=== PATIENT | female | born 1980 ===

== ENCOUNTER 2016-10-29 19:31 | Emergency (ER) | payer OTHER ==
[~2016-10-29] VITALS: Ht 147.3 cm; Wt 51.4 kg
--- OUTSIDE RECORDS SUMMARY | 2016-10-29 19:38 | XMS REPORT | Summary of Care ---
Author Author Tobias Galindo M.D. Organization Unknown Address Unknown Phone Unavailable Care Team Providers Care Plush Dresser Name Role Phone Tobias Galindo M.D. 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 Syncope (780.2, R55) Status: Active Migraine (346.90, G43.909) Status: Active Seasonal allergic rhinitis (477.9, J30.2) Status: Active Seizure disorder (345.90, G40.909) Status: Active Neck pain (723.1, M54.2) Status: Active Urticaria (708.9, L50.9) Status: Active Chest pain, atypical (786.59, R07.89) Status: Active Dizziness (780.4, R42) Status: Active Insect bites (919.4, W57.XXXA) Status: Active Joint pain (719.40, M25.50) Status: Active Fibromyalgia (729.1, M79.7) Status: Active Back pain, chronic (724.5, M54.9) Status: Active Type 1 diabetes (250.01, E10.9) Status: Active Hypercholesterolemia (272.0, E78.0) Status: Active Circadian rhythm sleep disorder, 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 Active 10 ML Vial Levothyroxine Sodium 88 MCG Oral Tablet Refills: 0 Active Excedrin Extra Strength CAPS Refills: 0 Active Carisoprodol 350 MG Oral Tablet TAKE 1 TABLET 3 times daily Quantity: 90 Refills: 5 JosieTobias vyas M.D. Start 08-May-2014 Active Estradiol 1 MG Oral Tablet TAKE 1 TABLET DAILY. Refills: 0 Start 08-May-2014 Active OxyCODONE HCl - 20 MG Oral Tablet 1 TAB EVERY 4 HOURS NEEDED FOR PAIN Quantity: 100 Refills: 0 Essex M.D., Tobias Start 27-Oct-2015 Active Methadone HCl - 10 MG Oral Tablet TAKE 4 TABS PO BID Quantity: 240 Refills: 0 Josie M.D., Tobias Start 27-Oct-2015 Active Hydrocodone-Acetaminophen 10-325 MG Oral Tablet TAKE 1 TO 2 TABLETS EVERY 4 TO 6 HOURS NEEDED FOR PAIN. Quantity: 240 Refills: 0 Essex M.D., Tobias Start 27-Oct-2015 Active Lisinopril 10 MG Oral Tablet TAKE 1 TABLET DAILY. Quantity: 30 Refills: 6 Essex M.D., Tobias Start 26-Nov-2015 Active Levemir 100 UNIT/ML Subcutaneous Solution Inject 32 units of Levemir at HS Refills: 0 Josie M.D., Tobias Start 26-Nov-2015 Active Lipitor 80 MG Oral Tablet TAKE 1 TABLET AT BEDTIME. Refills: 0 Essex M.D., Tobias Start 26-Nov-2015 Active Aspirin Adult Low Strength 81 MG Oral Tablet Chewable CHEW AND SWALLOW 1 TABLET DAILY. Refills: 0 Essex M.D., Tobias Start 26-Nov-2015 Active Meclizine HCl - 12.5 MG Oral Tablet TAKE 1 TABLET 3 TIMES DAILY NEEDED. Refills: 0 Essex M.D., Tobias Start 26-Nov-2015 Active Halobetasol Propionate 0.05 % External Cream APPLY AND GENTLY MASSAGE INTO AFFECTED AREA(S) TWICE DAILY. Quantity: 1 Refills: 2 Josie M.D., Tobias Start Active 15 GM Tube Modafinil 200 MG Oral Tablet TAKE 1 TABLET DAILY DIRECTED. Quantity: 30 Refills: 5 Essex M.D., Tobias Start 25-Feb-2016 Active Allergies and Adverse Reactions Name Dates Details Ativan (Allergy) Status: Active Cymbalta (Allergy) Status: Active Lyrica CAPS (Allergy) Status: Active Morphine Derivatives (Allergy) Status: Active Savella TABS (Allergy) Status: Active TraMADol HCl TABS (Allergy) Status: Active Zithromax (Allergy) Status: Active Past Medical History Name Dates Details Back pain, chronic (724.5, M54.9) Status: Active Chest pain, atypical (786.59, R07.89) Status: Active Fibromyalgia (729.1, M79.7) Status: Active Migraine (346.90, G43.909) Status: Active Neck pain (723.1, M54.2) Status: Active Seasonal allergic rhinitis (477.9, J30.2) Status: Active Seizure disorder (345.90, G40.909) Status: Active Type 1 diabetes (250.01, E10.9) Status: Active History of gastric ulcer (V12.79, Z87.19) Status: Resolved History of Numbness (782.0, R20.0) Status: Resolved History of tinnitus (V12.49, Z86.69) Status: Resolved Procedures Procedure Dates Details History of Hysterectomy History of Section History of Exploratory Laparoscopy History of Neuroplasty Decompression Median Nerve At Carpal Tunnel Drug Screen Pain Management 8400 Ordered: 20-Feb-2016 Immunization Name Dates Details Immunizations not documented Family History Name Dates Details Family history of fibromyalgia (V17.89, Z82.69) Status: Active Family history of migraine headaches (V17.2, Z82.0) Status: Active Family history of hypertension (V17.49, Z82.49) Status: Active Name Dates Details Family history of hypoglycemia (V18.19, Z83.49) Status: Active Social History Name Dates Details - Status: Name Dates Details Current every day smoker Vital Signs Date Test Result Details 25-Feb-2016 08:03 BP Systolic 108 mm[Hg] Status: Comments: Location: LUE; Position: Sitting BP Diastolic 70 mm[Hg] Status: Comments: Location: LUE; Position: Sitting Temperature 98 f Status: Comments: Method: Oral Heart Rate 68 /min Status: Comments: Location: L Radial; Weight 125 lb Status: Physical Findings 97 Status: Comments: O2 Saturation Body Mass Index Calculated 25.68 kg/m2 Status: Body Surface Area Calculated 1.5 m2 Status: Results Date Description Value Details 11:04 LIPID PROFILE 1184 Comments: Items were attached to this order: LIPID, GHGB Fastin hours CHOLESTEROL 214 mg/dL (Above high threshold) Range: <200 TRIGLYCERIDES 166 mg/dL Range: 30-200 HDL Cholesterol 58 mg/dL Range: >39 NON HDL CHOLESTEROL 156 CARDIAC RSK FACTOR 3.7 units (Below low threshold) Range: 4.4-5.0 LDL - CALCULATED 123 mg/dL Range: 0-130 11:51 HEMOGLOBIN A1C 3507 Comments: Items were attached to this order: LIPID , GB Fastin hours Hemoglobin A1C 11.2 % ESTIMATED AVG. GLUCOSE 275 13:09 ANTINUCLEAR ANTIBODIES 3902 Comments: Fastin hours ANTINUCLEAR ANTIBODIES 41 AU/mL Range: 0-120 Comments: REFERENCE VALUE INTERPRETATION 0-99 U/mL - NEGATIVE 100 - 120 U/mL - EQUIVOCAL >120 U/mL - POSITIVE--- -- Plan of Care Name Dates Details Planned Observations Planned Goals not documented Planned Encounters Appointment; Provider: Tobias Galindo M.D. On 26-Mar-2016 08:00 Interventions Provided Medication ChangesCarisoprodol 350 MG Oral Tablet - RenewHydrocodone- Acetaminophen 10-325 MG Oral Tablet - RenewMethadone HCl - 10 MG Oral Tablet - RenewModafinil 200 MG Oral Tablet - StartOxyCODONE HCl - 20 MG Oral Tablet - Renew Instructions Name Dates Details Instructions not documented Encounters Appointment; Tobias Galindo M.D. Encounter Diagnosis: Problem not documented On 08:15 Appointment; Tobias Galindo M.D. Encounter Diagnosis: Problem not documented On 08:15 Appointment; Tobais Galindo M.D. Encounter Diagnosis: Problem not documented On 26-Nov-2015 10:00 Appointment; Tobias Galindo M.D. Encounter Diagnosis: Problem not documented On 27-Oct-2015 09:15 Appointment; Josué Nogueira M.D. Encounter Diagnosis: Problem not documented On 14:30 Appointment; Josué Nogueira M.D. Encounter Diagnosis: Problem not documented On 20-Aug-2014 15:15 Appointment; Josué Nogueira M.D. Encounter Diagnosis: Problem not documented On 20-Aug-2014 12:00 Appointment; Josué Nogueira M.D. Encounter Diagnosis: Problem not documented On 22-May-2014 14:30 Appointment; Josué Nogueira M.D. Encounter Diagnosis: Problem not documented On 16-May-2014 12:00 Appointment; Josué Nogueira M.D. Encounter Diagnosis: Problem not documented On 08-May-2014 09:00 Appointment; Josué Nogueira M.D. Encounter Diagnosis: Problem not documented On 29-Mar-2014 10:00
[2016-10-29] MEDS ORDERED: METH40TA2 PO (20:35)
[2016-10-29] MEDS ORDERED: ACHYD1T PO (20:35)
[2016-10-29] MEDS ORDERED: INSU100V32 SC (20:35)
[2016-10-29] MEDS ORDERED: LVT.025T PO (20:35)
[2016-10-29] MEDS ORDERED: INSU100I23 SC (20:35)
[2016-10-29] MEDS ORDERED: LISI5TAB14 PO (20:57)
[2016-10-29] MEDS ORDERED: MODA200T34 PO (20:57)
[2016-10-29] MEDS ORDERED: TIZAN4T PO (20:57)
[2016-10-29] MEDS ORDERED: ATOR80TA PO (20:57)
[2016-10-29] MEDS ORDERED: OXYC20TA3 PO (20:57)
[2016-10-29] MEDS ORDERED: ESTR1TAB27 PO (20:57)
[2016-10-29 21:46] VITALS: BP 114/78
--- NOTE | 2016-10-30 08:16 | Diagnostic Imaging Report ---
INDICATION: Trauma, pain FINDINGS: The distal radius and ulna intact. The scaphoid and remaining proximal as well as distal carpal row intact. No fractures identified. IMPRESSION: No fracture demonstrated Dictated by: Dictated on workstation # [id number]
== END 2016-10-29 21:45 | disposition home or self-care (01) ==
LOC: ED 19:34
DX: S63.502A Unspecified sprain of left wrist, initial encounter (principal); W01.198A Fall on same level from slipping, tripping and stumbling with subsequent striking against other object, initial encounter; Y92.129 Unspecified place in nursing home as the place of occurrence of the external cause; Y99.0 Civilian activity done for income or pay
CPT/HCPCS: 73110; 99283; L3908; 99282

== ENCOUNTER → 2016-10-29 | Outpatient (REF) ==
[~2016-10-29] MED LIST: ACHYD1T PO; ATOR80TA PO; ESTR1TAB27 PO; INSU100I23 SC; INSU100V32 SC; LISI5TAB14 PO; LVT.025T PO; METH40TA2 PO; MODA200T34 PO; OXYC20TA3 PO; TIZAN4T PO
== END ==
LOC: EUOP 19:36
PROVIDERS: ATTEND Emergency Medicine
DX: Z02.89 Encounter for other administrative examinations (principal); Z02.83 Encounter for blood-alcohol and blood-drug test